=== PATIENT | male | born 1990 | race Caucasian/White ===

== ENCOUNTER 2020-05-25 02:13 | Emergency (ER) | payer SELFPAY ==
--- NOTE | ~2020-05-25 | CT_ITS ---
EXAMINATION: CT facial bones wo con, CT cervical spine wo con EXAM DATE: 05/25/2020 03:24 (accession [id number]), 05/25/2020 03:27 (accession [id number]) INDICATION: Initial encounter following injury, with pain of the face, neck. Frontal ground. Forehea d and left eyebrow injury. TECHNIQUE: Spiral CT of the facial bones was acquired in the axial plane. Coronal reformatted images were also reviewed. Spiral CT of the cervical spine was performed without contrast. Axial images we re reviewed. Coronal and sagittal reformatted images were also reviewed. The dose-length product (DL P) for this examination was 289.57 (accession [id number]), 319.65 (accession [id number]) mGy- cm. The exposure was tailored according to patient size, and iterative reconstruction (ASIR) was use d as additional dose reduction technique. There is no prior study for comparison. FINDINGS: FACIAL CT: There are no displaced acute nasal bone fractures. The mandible, sinuses and orbits are i ntact. The orbits, globes and extraocular muscles are unremarkable. There is completely opacified left frontal, ethmoid, maxillary sinuses, left ostiomeatal unit pattern obstructive sinus disease. O n the right side, frontal sinus is completely opacified, moderate to severe opacification ethmoid, mo derate sphenoid, mild maxillary sinus opacification. Poor dentition with cavities. CERVICAL CT: There is no evidence of acute cervical fracture. The odontoid process is intact. Pre-d ens space is normal. Prevertebral soft tissue is normal. There are no soft tissue abnormalities nikko ntified. There is no disc space widening or traumatic vertebral body subluxation suspected. Vertebr al body and disc heights are well-maintained. 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 Mastoid air cells are well aerated. Only mild cervical arthropathy. IMPRESSION: 1. No acute facial or cervical fracture. 2. Extensive sinus disease. Reviewed, dictated and finalized at location B. IMPRESSION: 1. No acute facial or cervical fracture. 2. Extensive sinus disease.
--- NOTE | ~2020-05-25 | XR_ITS ---
EXAMINATION: XR ribs LT 2V DATE: 05/25/2020 03:25 INDICATION: Left rib injury. TECHNIQUE: 4 views of the left ribs were obtained. COMPARISON: None. FINDINGS: The chest demonstrates clear lungs without pneumonia, pleural effusion, or pneumothorax. Th e heart size is normal. IMPRESSION: 1. No rib fracture. Reviewed, dictated and finalized at location A. IMPRESSION: 1. No rib fracture.
--- NOTE | ~2020-05-25 | CT_ITS ---
EXAMINATION: CT brain wo con DATE: 05/25/2020 03:26 INDICATION: Head injury. TECHNIQUE: Computed tomography (CT) of the head was performed without intravenous contrast. The mA wa s adjusted according to patient size. Iterative reconstruction technique was employed. The dose-lengt h product was 605.33 mGy-cm. COMPARISON: None FINDINGS: There is no intracranial hemorrhage, acute infarction, or abnormal intracranial mass lesion . The ventricles are normal in size. The orbits are normal. There is extensive mucosal thickening in the paranasal sinuses including complete opacification of the left maxillary and ethmoid sinuses, fro ntal sinuses, and anterior right ethmoid sinuses. There is thickening sclerosis of the paige of the f rontal and left maxillary sinuses. The mastoid air cells are normal. The orbits are normal. IMPRESSION: 1. Normal brain. 2. Chronic sinusitis. Reviewed, dictated and finalized at location A.
[2020-05-25 02:15] VITALS: BP 144/90; PULSE 89; RESP 18; TEMP 36.7; O2SAT 100
[2020-05-25] MEDS: KETOROLAC (*BKC) 60 MG/2 ML VIAL IM (02:44)
--- NOTE | 2020-05-25 02:46 | PC.NURSE ---
Cleaned and dressed patients face wounds, I used Dermal Wound Cleanser Spay, 4x4 tray, and placed band-aids over the wounds, patient tolerated well.
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
[2020-05-25] MEDS: TETANUS,DIPHTHERIA,AC PERTUSSIS ADULT 0.5 ML (ADACEL) IM (04:30)
[2020-05-25 04:31] VITALS: BP 130/75; PULSE 82; RESP 18; TEMP 36.8; O2SAT 100
== END 2020-05-25 04:43 | disposition home or self-care (01) ==
PROVIDERS: Emergency Provider Emergency Medicine
DX: S00.81XA Abrasion of other part of head, initial encounter (principal); S20.212A Contusion of left front wall of thorax, initial encounter; Y04.0XXA Assault by unarmed brawl or fight, initial encounter
CPT/HCPCS: 70450; 70486; 71100; 72125; 90471; 90715; 96372; 99283; 99284; J1885

== ENCOUNTER 2023-08-23 11:47 | Emergency (ER) | payer OTHER, SELFPAY ==
--- NOTE | ~2023-08-23 | XR_ITS ---
EXAMINATION: XR wrist LT min 3V DATE: 08/23/2023 12:05 INDICATION: Left wrist pain and deformity. Fall. TECHNIQUE: 2 views of left wrist were obtained. COMPARISON: None. FINDINGS: There is a comminuted fracture of radial metaphysis without involvement of the distal radio ulnar joint or distal articular surface. The distal main distal fracture fragment demonstrates impact ion and dorsal angulation. There is 40 degrees dorsal tilt of the distal articular surface. There is an avulsion fracture of ulnar styloid. Joint spaces are normal. IMPRESSION: 1. Comminuted fracture of distal radial metaphysis. 2. Avulsion fracture of the ulnar styloid. Reviewed, dictated and finalized at location A. 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
[2023-08-23 12:06] VITALS: BP 153/113; PULSE 86; RESP 16; TEMP 37.2; O2SAT 100
--- NOTE | 2023-08-23 12:29 | ED.UPPEXIN ---
HPI - Extremity Injury (Upper) General Chief Complaint: Extremity Injury, Upper Stated Complaint: left wrist inj Time Seen by Provider: 08/23/23 12:04 Source: patient and RN notes reviewed Mode of arrival: ambulatory Limitations: no limitations History of Present Illness HPI narrative: Patient presents today with an injury to his left wrist. Approximately 1 hour prior to arrival patient was hopping over a railing at work, fell backwards onto an outstretched arm, injuring his wrist. Denies numbness or tingling. Currently rates his pain 07/14. He took a dose of ibuprofen prior to arrival. Related Data Home Medications Medication Instructions Recorded Confirmed No Home Medications 08/23/23 08/23/23 Allergies Allergy/AdvReac Type Severity Reaction Status Date / Time Penicillins Allergy Unknown Verified 08/23/23 11:58 Review of Systems Review of Systems: CONSTITUTIONAL: Denies body aches, fever, chills, or sweats. EYES: Denies visual changes, redness, or discharge. ENT: Denies rhinorrhea, congestion, sore throat, or otalgia. CARDIOVASCULAR: Denies chest pain, palpitations, or edema. RESPIRATORY: Denies cough or dyspnea. GASTROINTESTINAL: Denies abdominal pain, nausea, vomiting, or diarrhea. GENITOURINARY: Denies dysuria or hematuria. SKIN: Denies rash, itching, or wounds. MUSCULOSKELETAL:+ left wrist injury NEUROLOGIC: Denies headache, numbness, tingling, or weakness. PSYCH: Denies depression or anxiety. [facility] Past Medical History Medical History (Updated 08/23/23 @ 12:35 by Carissa Echeverria, [facility], ) Patient denies medical problems Comments At time of signature, I have reviewed and agree with nursing past medical, surgical, social and family history unless otherwise noted. Please see nursing chart for further information. There is no relevant family history pertinent to the presenting complaint Exam Narrative: GENERAL: Well-appearing, well-nourished, and in severe pain distress HEAD: Normocephalic, atraumatic. EYES: EOMI. No redness or drainage. ENT: Mucous membranes pink and moist. NECK: Normal AROM. CHEST: No respiratory distress. EXTREMITIES: Left wrist: Obvious deformity at the dorsum of the distal radius. Distal since patient intact in all 5 fingers. Capillary refill normal. Radial pulse normal. SKIN: Warm, dry, no rash. Capillary refill normal. Normal skin turgor. NEURO: No focal deficits. Alert and oriented x3. Gait steady. PSYCH: Normal affect. No signs of depression or anxiety. Course Course Emergency Course: Discussed patient with Dr. Clinton at [facility]. She recommends trauma center instead of ER transfer to [place]. Level of Care: Express Care Visit Vital Signs Vital signs: Vital Signs Temperature 98.9 F 08/23/23 12:06 Pulse Rate 86 08/23/23 12:06 Respiratory Rate 16 08/23/23 12:06 Blood Pressure 153/113 H 08/23/23 12:06 Pulse Oximetry 100 08/23/23 12:06 Temperature 98.9 F 08/23/23 12:06 Pulse Rate 86 08/23/23 12:06 Respiratory Rate 16 08/23/23 12:06 Blood Pressure 153/113 H 08/23/23 12:06 Pulse Oximetry 100 08/23/23 12:06 Reviewed Transfer Transfered to: [facility] Transportation: Other (Private vehicle) Transfer rationale: Comminuted fracture of the left distal radius with deformity Accepting physician: Elie MDM - Extremity Injury (Upper) MDM Narrative Medical decision making narrative: Patient will be transferred to [facility] for further evaluation. Differential Diagnosis Differential diagnosis: Likely fracture of wrist Imaging Data Radiologist's impression: ITS Impressions Wrist X-Ray 08/23/23 12:06 IMPRESSION: 1. Comminuted fracture of distal radial metaphysis. 2. Avulsion fracture of the ulnar styloid. Critical Care Time Critical Care Time Critical Care Time: No Discharge Plan Discharge Clinical Impression: Distal radius fracture
== END 2023-08-23 12:31 | disposition short-term general hospital (02) ==
PROVIDERS: Emergency Provider Nurse Practitioner
DX: S52.502A Unspecified fracture of the lower end of left radius, initial encounter for closed fracture (principal); W19.XXXA Unspecified fall, initial encounter; Y99.0 Civilian activity done for income or pay
CPT/HCPCS: 29125; 73110; 99204; A4565; G0463